=== PATIENT | female | born 1955 | race Caucasian/White ===

== ENCOUNTER → 2023-11-28 14:48 | Outpatient (BNVA) | payer MEDICARE, OTHER, SELFPAY | PROVIDERS: PCP Family Medicine; Visit Provider Nurse Practitioner Family | DX: D48.5 Neoplasm of uncertain behavior of skin (principal); L82.1 Other seborrheic keratosis; L57.8 Other skin changes due to chronic exposure to nonionizing radiation; D22.39 Melanocytic nevi of other parts of face; L81.4 Other melanin hyperpigmentation | CPT/HCPCS: 11102; 99203 ==

== ENCOUNTER → 2024-05-28 14:58 | Outpatient (BNVA) | payer MEDICARE, OTHER, SELFPAY | PROVIDERS: PCP Family Medicine; Visit Provider Nurse Practitioner Family | DX: L57.8 Other skin changes due to chronic exposure to nonionizing radiation (principal); D22.39 Melanocytic nevi of other parts of face; L81.4 Other melanin hyperpigmentation; L91.0 Hypertrophic scar; L91.8 Other hypertrophic disorders of the skin; Z78.9 Other specified health status; L53.8 Other specified erythematous conditions | CPT/HCPCS: 17110; 99213 ==